=== PATIENT | female | born 1940 | race Caucasian/White ===

== ENCOUNTER → 2016-10-08 | Outpatient (REF) | payer MEDICARE, MEDICAID ==
[2016-10-08 14:47] LABS: PERCENT SATURATION 24.7 % (13.2-37.4)
== END ==
LOC: M LAB REF 13:11
PROVIDERS: ATTEND Internal Medicine Medical Oncology
DX: C50.912 Malignant neoplasm of unspecified site of left female breast (principal); Z79.811 Long term (current) use of aromatase inhibitors; Z90.12 Acquired absence of left breast and nipple

== ENCOUNTER 2017-08-01 19:04 | Emergency (ER) | payer MEDICARE, MEDICAID | END 2017-08-01 21:42 | disposition E | LOC: M ED 19:04 | DX: I46.9 Cardiac arrest, cause unspecified (principal) | CPT/HCPCS: 99285 ==